=== PATIENT | male | born 2000 ===

== ENCOUNTER 2019-07-02 15:32 | Emergency (ER) | payer BC ==
--- NOTE | 2019-07-02 15:52 | UC ---
Throat Pain/Nasal [place] HPI - HPI Summary HPI Summary: 18-year-old male with a sore throat for 2 days. Denies fever or chills. He does have a friend who has pneumonia. Patient has no other complaints of illness. He is a nonsmoker. - History of Current Complaint Chief Complaint: UCGeneralIllness Stated Complaint: FLU SYMPTOMS Time Seen by Provider: 07/02/19 15:38 Hx Obtained From: Patient Onset/Duration: Gradual Onset Severity: Mild Pain Intensity: 6 Cough: None Associated Signs & Symptoms: Positive: Negative - Allergies/Home Medications Allergies/Adverse Reactions: Allergies Allergy/AdvReac Type Severity Reaction Status Date / Time No Known Allergies Allergy Verified 07/02/19 15:44 Home Medications: Home Medications Melatonin 15 mg PO BEDTIME PRN 07/02/19 [History Confirmed 07/02/19] PMH/Surg Hx/FS Hx/Imm Hx Previously Healthy: Yes - Surgical History Surgical History: None - Family History Known Family History: Positive: Non-Contributory - Social History Occupation: Student Alcohol Use: Weekly Substance Use Type: None Smoking Status (MU): Never Smoked Tobacco Review of Systems All Other Systems Reviewed And Are Negative: Yes ENT: Positive: Sore Throat Is Patient Immunocompromised?: No Physical Exam Triage Information Reviewed: Yes Appearance: Well-Appearing, No Pain Distress, Well-Nourished Vital Signs: Initial Vital Signs Temp 98.5 F 07/02/19 15:39 Pulse 81 07/02/19 15:39 Resp 18 07/02/19 15:39 BP 114/59 07/02/19 15:39 Pulse Ox 98 07/02/19 15:39 Vital Signs Reviewed: Yes Eyes: Positive: Conjunctiva Clear ENT: Positive: Pharynx normal, TMs normal, Uvula midline Neck: Positive: Supple, Nontender, No Lymphadenopathy Respiratory: Positive: Lungs clear, Normal breath sounds, No respiratory distress, No accessory muscle use Cardiovascular: Positive: RRR, No Murmur, Pulses Normal, Brisk Capillary Refill Abdomen Description: Positive: Nontender, No Organomegaly, Soft. Negative: CVA Tenderness (R), CVA Tenderness (L), Hepatomegaly, Splenomegaly Bowel Sounds: Positive: Present Musculoskeletal: Positive: Strength Intact, ROM Intact Neurological Exam: Normal Psychological Exam: Normal Skin Exam: Normal Throat Pain/Nasal Course/Dx - Course Course Of Treatment: Rapid strep test: Negative I believe this is more a viral illness. He can use warm saltwater gargles and throat lozenges. He is to follow up at the [facility] if any worsening of symptoms or no improvement in 3 or 4 days. - Differential Dx/Diagnosis Provider Diagnosis: Pharyngitis Discharge ED - Sign-Out/Discharge Documenting (check all that apply): Patient Departure All imaging exams completed and their final reports reviewed: No Studies - Discharge Plan Condition: Good Disposition: HOME Patient Education Materials: Pharyngitis (ED) Referrals: [facility] [[employer], APPLICATION, OTHER] - No Primary Care Phys,NOPCP [Primary Care Provider] - Additional Instructions: Increase fluids, throat lozenges, warm saltwater gargles as needed for comfort. Tylenol or Motrin if you run a fever. Follow-up at the [facility] if no improvement in 3 or 4 days. - Billing Disposition and Condition Condition: GOOD Disposition: Home
== END 2019-07-02 16:20 | disposition home or self-care (01) ==
LOC: UCEAST 15:32
DX: J02.9 Acute pharyngitis, unspecified (principal)
CPT/HCPCS: 87651; 99211; G0463